=== PATIENT | male | born 1970 | race Caucasian/White ===

== ENCOUNTER 2022-12-08 10:30 | Outpatient (REF) | payer OTHER, SELFPAY ==
--- NOTE | ~2022-12-08 | XR_ITS ---
EXAMINATION: XR SACROILIAC JOINTS CLINICAL INFORMATION: Ankylosing spondylitis. COMPARISON: None TECHNIQUE: AP and bilateral Judet views of the sacroiliac joints FINDINGS: Bony alignment and mineralization are normal. The left sacroiliac joint is well-maintained an intact. There is possible ankylosis of the upper and lower aspects of the right sacroiliac joint, which are poorly defined. No fracture or dislocation is seen. The hip joints are well-maintained. There is a moderate colonic stool burden. XR/XR sacroiliac joint 1-2V IMPRESSION: The left acetabular joint is well-maintained, and the right sacroiliac joint shows questionable ankylosis superiorly and inferiorly, suboptimally visualized. Consider repeat oblique radiographs of the right sacroiliac joint or CT or MRI evaluation, if clinically indicated.
--- NOTE | ~2022-12-08 | XR_ITS ---
EXAMINATION: XR CHEST 2 VIEWS CLINICAL INFORMATION: Left uveitis; sarcoidosis. COMPARISON: None. TECHNIQUE: Frontal and lateral views of the chest were obtained. FINDINGS: The heart, great vessels, pulmonary vasculature and mediastinum are normal. The lungs show no focal infiltrate, effusion or pneumothorax. There are old, healed posterolateral left seventh and eighth rib fractures. There is no acute osseous abnormality. There is multi-level thoracic spondylosis. XR/XR chest 2V IMPRESSION: No active cardiopulmonary disease.
[2022-12-10 23:13] LABS: TS Negative Control Passed; TS Panel A 0; TS Panel B 0; TS Positive Control Passed; TSpotTB Negative (Negative)
== END 2022-12-08 10:31 | disposition home or self-care (01) ==
LOC: HO.XRAY 10:30
PROVIDERS: Visit Provider Optometrist
DX: Z11.1 Encounter for screening for respiratory tuberculosis (principal); H20.9 Unspecified iridocyclitis
CPT/HCPCS: 36415; 71046; 72200; 86481

== ENCOUNTER 2023-05-17 14:16 | Outpatient (AMB) | payer OTHER, SELFPAY ==
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
[2023-05-17 14:32] VITALS: BP 110/64; PULSE 77; RESP 17; TEMP 36.5; O2SAT 96; BMI 36.6
== END 2023-05-17 15:17 | disposition home or self-care (01) ==
PROVIDERS: PCP Registered Nurse; Visit Provider Student in an Organized Health Care Education/Training Program
DX: M45.0 Ankylosing spondylitis of multiple sites in spine (principal)
CPT/HCPCS: 99203

== ENCOUNTER → 2023-05-17 14:16 | Outpatient (BNVA) | payer OTHER, SELFPAY | PROVIDERS: PCP Registered Nurse; Visit Provider Student in an Organized Health Care Education/Training Program | DX: M45.0 Ankylosing spondylitis of multiple sites in spine (principal) | CPT/HCPCS: 99202 ==

== ENCOUNTER 2023-06-05 13:45 | Outpatient (REF) | payer OTHER, SELFPAY ==
--- NOTE | ~2023-06-05 | XR_ITS ---
EXAMINATION: 1. RADIOGRAPHS CERVICAL SPINE 2. RADIOGRAPHS THORACIC SPINE 3. RADIOGRAPHS LUMBAR SPINE CLINICAL INFORMATION: Ankylosing spondylitis COMPARISON: None TECHNIQUE: 4 views of the cervical spine and 3 views of the thoracic spine and 3 views of the lumbar spine were obtained. FINDINGS: Cervical spine: The cervical spine demonstrates normal alignment. Normal C1/2 articulation. Cervical vertebral body heights are maintained. There is mild narrowing of the C3/4 disc space height. Other disc space heights are well-maintained. There is no prevertebral soft tissue swelling. Thoracic spine: Normal alignment of the thoracic spine. Thoracic vertebral body heights are maintained. There is mild narrowing of diffuse disc spaces throughout the mid and lower thoracic spine. Small bridging osteophytes are present throughout the mid and lower thoracic spine. Visualized lung parenchyma is well aerated. Partially visualized hardware of the upper extremity. Lumbar spine: 5 nonrib-bearing lumbar vertebral bodies are visualized. There is mild levoscoliosis of the lumbar spine which is possibly positional. Lumbar vertebral body heights are maintained. Lumbar disc spaces are maintained. There are mild degenerative changes of the posterior elements of the lower lumbar spine. Suspected complete ankylosis of the right sacroiliac joint with partial ankylosis of the left sacroiliac joint. XR/XR lumbar spine 2-3V IMPRESSION: 1. Minimal degenerative changes of the cervical spine. 2. Mild diffuse degenerative changes of the thoracic spine without compression deformity. 3. Mild degenerative changes of the lower lumbar spine without compression deformity.
--- NOTE | ~2023-06-05 | XR_ITS ---
EXAMINATION: 1. RADIOGRAPHS CERVICAL SPINE 2. RADIOGRAPHS THORACIC SPINE 3. RADIOGRAPHS LUMBAR SPINE CLINICAL INFORMATION: Ankylosing spondylitis COMPARISON: None TECHNIQUE: 4 views of the cervical spine and 3 views of the thoracic spine and 3 views of the lumbar spine were obtained. FINDINGS: Cervical spine: The cervical spine demonstrates normal alignment. Normal C1/2 articulation. Cervical vertebral body heights are maintained. There is mild narrowing of the C3/4 disc space height. Other disc space heights are well-maintained. There is no prevertebral soft tissue swelling. Thoracic spine: Normal alignment of the thoracic spine. Thoracic vertebral body heights are maintained. There is mild narrowing of diffuse disc spaces throughout the mid and lower thoracic spine. Small bridging osteophytes are present throughout the mid and lower thoracic spine. Visualized lung parenchyma is well aerated. Partially visualized hardware of the upper extremity. Lumbar spine: 5 nonrib-bearing lumbar vertebral bodies are visualized. There is mild levoscoliosis of the lumbar spine which is possibly positional. Lumbar vertebral body heights are maintained. Lumbar disc spaces are maintained. There are mild degenerative changes of the posterior elements of the lower lumbar spine. Suspected complete ankylosis of the right sacroiliac joint with partial ankylosis of the left sacroiliac joint. XR/XR cervical spine 3V IMPRESSION: 1. Minimal degenerative changes of the cervical spine. 2. Mild diffuse degenerative changes of the thoracic spine without compression deformity. 3. Mild degenerative changes of the lower lumbar spine without compression deformity.
--- NOTE | ~2023-06-05 | XR_ITS ---
EXAMINATION: 1. RADIOGRAPHS CERVICAL SPINE 2. RADIOGRAPHS THORACIC SPINE 3. RADIOGRAPHS LUMBAR SPINE CLINICAL INFORMATION: Ankylosing spondylitis COMPARISON: None TECHNIQUE: 4 views of the cervical spine and 3 views of the thoracic spine and 3 views of the lumbar spine were obtained. FINDINGS: Cervical spine: The cervical spine demonstrates normal alignment. Normal C1/2 articulation. Cervical vertebral body heights are maintained. There is mild narrowing of the C3/4 disc space height. Other disc space heights are well-maintained. There is no prevertebral soft tissue swelling. Thoracic spine: Normal alignment of the thoracic spine. Thoracic vertebral body heights are maintained. There is mild narrowing of diffuse disc spaces throughout the mid and lower thoracic spine. Small bridging osteophytes are present throughout the mid and lower thoracic spine. Visualized lung parenchyma is well aerated. Partially visualized hardware of the upper extremity. Lumbar spine: 5 nonrib-bearing lumbar vertebral bodies are visualized. There is mild levoscoliosis of the lumbar spine which is possibly positional. Lumbar vertebral body heights are maintained. Lumbar disc spaces are maintained. There are mild degenerative changes of the posterior elements of the lower lumbar spine. Suspected complete ankylosis of the right sacroiliac joint with partial ankylosis of the left sacroiliac joint. XR/XR thoracic spine 3V IMPRESSION: 1. Minimal degenerative changes of the cervical spine. 2. Mild diffuse degenerative changes of the thoracic spine without compression deformity. 3. Mild degenerative changes of the lower lumbar spine without compression deformity.
[2023-06-05 15:40] LABS: Alanine Aminotransferase 15 U/L (0-40); Alkaline Phosphatase 96 U/L (39-117); Anion Gap 12 (12-20); Aspartate Amino Transferase 11 U/L (5-37); Bilirubin Total 0.4 mg/dL (0.0-1.0); Blood Urea Nitrogen 14 mg/dL (9-16); Calcium 9.6 mg/dL (8.4-10.2); Carbon Dioxide 26 mmol/L (22-29); Chloride 104 mmol/L (96-108); Estimated Glomerular Filt Rate > 60; Glucose Random 241 mg/dL (60-115); Potassium 3.9 mmol/L (3.3-5.1); Sodium 138 mmol/L (135-145); Total Protein 7.2 g/dL (6.5-8.0)
[2023-06-06 04:05] LABS: HBc Num1 0.16 S/CO (0.00-0.79); HBsAGNum1 0.45 S/CO (0.00-0.99); Hepatitis A Antibody IgM 0.22 Index (0-0.79); Hepatitis B Core Antibody Nonreactive (Nonreactive); Hepatitis B Surface Antigen Negative (Negative); ~HepC Num1 0.13 S/CO (0.00-0.79); ~Hepatitis A Antibody IgM Nonreactive (Nonreactive); ~Hepatitis B Surface Antibody NONREACTIVE (Nonreactive); ~Hepatitis C Antibody Nonreactive (Nonreactive)
[2023-06-06 13:34] LABS: Prot Elec - Albumin 4.2 g/dL (3.8-4.8); Prot Elec - Alpha1 0.3 g/dL (0.2-0.3); Prot Elec - Alpha2 0.7 g/dL (0.5-0.9); Prot Elec - Beta 1 0.5 g/dL (0.4-0.6); Prot Elec - Beta 2 0.4 g/dL (0.2-0.5); Prot Elec - Total Protein 6.9 g/dL (6.1-8.1)
[2023-06-07 21:13] LABS: TS Negative Control Passed; TS Panel A 0; TS Panel B 0; TS Positive Control Passed; TSpotTB Negative (Negative)
[2023-06-09 20:08] LABS: HLA B27 Positive (Negative)
[2023-06-12 10:47] LABS: IgA 198 mg/dL (47-310); IgG 1184 mg/dL (600-1640); IgM 99 mg/dL (50-300)
== END 2023-06-05 13:46 | disposition home or self-care (01) ==
LOC: HO.LAB 13:45
PROVIDERS: PCP Nurse Practitioner Primary Care; Visit Provider Student in an Organized Health Care Education/Training Program
DX: Z11.7 Encounter for testing for latent tuberculosis infection (principal); Z11.59 Encounter for screening for other viral diseases; M45.0 Ankylosing spondylitis of multiple sites in spine
CPT/HCPCS: 36415; 72040; 72072; 72100; 80053; 82784; 84165; 86334; 86481; 86704; 86706; 86709; 86803; 86812; 87340

== ENCOUNTER 2023-07-17 09:45 | Outpatient (AMB) | payer OTHER, SELFPAY ==
[2023-07-17 09:47] VITALS: BP 110/66; PULSE 72; TEMP 36.2; O2SAT 97; BMI 37.6
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
== END 2023-07-17 10:16 | disposition home or self-care (01) ==
PROVIDERS: PCP Nurse Practitioner Primary Care; Visit Provider Student in an Organized Health Care Education/Training Program
DX: M45.0 Ankylosing spondylitis of multiple sites in spine (principal)
CPT/HCPCS: 99213

== ENCOUNTER → 2023-07-17 09:45 | Outpatient (BNVA) | payer OTHER, SELFPAY | PROVIDERS: PCP Nurse Practitioner Primary Care; Visit Provider Student in an Organized Health Care Education/Training Program | DX: M45.0 Ankylosing spondylitis of multiple sites in spine (principal) | CPT/HCPCS: 99212 ==

== ENCOUNTER 2024-06-05 14:27 | Outpatient (REF) | payer OTHER, SELFPAY ==
[2024-06-05 16:12] LABS: Hematocrit 46.2 % (42.0-52.0)
[2024-06-05 16:27] LABS: Alanine Aminotransferase 13 U/L (0-40); Albumin Level 4.2 g/dL (3.5-5.0); Alkaline Phosphatase 65 U/L (39-117); Anion Gap 12 (12-20); Aspartate Amino Transferase 12 U/L (5-37); Bilirubin Total 0.4 mg/dL (0.0-1.0); Blood Urea Nitrogen 15 mg/dL (9-16); Calcium 9.2 mg/dL (8.4-10.2); Carbon Dioxide 24 mmol/L (22-29); Chloride 104 mmol/L (96-108); Cholesterol 189 mg/dL (<200); Estimated Glomerular Filt Rate > 60; Glucose Random 186 mg/dL (60-115); HDL Cholesterol 37 mg/dL (>40); LDL Cholesterol Calculated 125 mg/dL (<100); Sodium 136 mmol/L (135-145); Total Protein 7.2 g/dL (6.5-8.0); Triglycerides 138 mg/dL (<150)
[2024-06-05 16:44] LABS: Creatinine Urine 51.87 mg/dL; Microalbumin Urine < 5.0 mg/L
[2024-06-09 21:34] LABS: Testosterone, Free 223.1 pg/mL (35.0-155.0); Testosterone, Total 970 ng/dL (250-1100)
== END 2024-06-05 14:28 | disposition home or self-care (01) ==
LOC: HO.HHCL 14:27
PROVIDERS: Visit Provider Nurse Practitioner Primary Care
DX: E11.65 Type 2 diabetes mellitus with hyperglycemia (principal); R79.89 Other specified abnormal findings of blood chemistry
CPT/HCPCS: 36415; 80053; 80061; 82570; 84402; 84403; 85014; 85018

== ENCOUNTER 2024-11-13 08:36 | Outpatient (REF) | payer OTHER, SELFPAY ==
[2024-11-13 11:37] LABS: Hematocrit 50.4 % (42.0-52.0); Hemoglobin 16.5 g/dl (14.0-18.0)
[2024-11-13 11:41] LABS: Cholesterol 179 mg/dL (<200); HDL Cholesterol 33 mg/dL (>40); LDL Cholesterol Calculated 111 mg/dL (<100); Triglycerides 179 mg/dL (<150)
[2024-11-13 11:45] LABS: Estimated Average Glucose 163 mg/dL; Hemoglobin A1C 246.3694 umol/L; Hemoglobin A1c % 7.3 % (<6.0); Total Hemoglobin (HGBA1C) 4336.5505 umol/L
[2024-11-18 20:38] LABS: Testosterone, Free 318.9 pg/mL (35.0-155.0); Testosterone, Total 1127 ng/dL (250-1100)
== END 2024-11-13 08:37 | disposition home or self-care (01) ==
LOC: HO.HHCL 08:36
PROVIDERS: Visit Provider Nurse Practitioner Primary Care
DX: E11.65 Type 2 diabetes mellitus with hyperglycemia (principal); R79.89 Other specified abnormal findings of blood chemistry
CPT/HCPCS: 36415; 80061; 83036; 84402; 84403; 85014; 85018

== ENCOUNTER 2025-08-28 08:41 | Outpatient (REF) | payer OTHER, SELFPAY ==
--- OUTSIDE RECORDS SUMMARY | 2025-08-28 09:20 | XMS_ITS | Encounter Summary ---
Author Organization [email or web address] Address [address] [place] [address] Care Team Providers Care Supervisor Rubber Covering Name Role Phone Anayeli Naranjo Primary Care Provider [phone] Encounter Details Date Type Department Care Team (Late st Contact Info) Description 01/03/2024 Telephone [facility] [address] [place], [place] [phone] Anayeli Naranjo ANP [address] [place] [address] Social History Tobacco Use Types Packs/Day Years Used Date Smoking Tobacco: Never Smokeless Tobacco: Never Alcohol Use Standard Drinks/Week Comments Never 0 (1 standard drink = 0.6 oz pur e alcohol) Depression Answer Date Recorded Patient Health Questionnaire-9 Score 0 05/15/2023 Housing Stability Answer Date Recorded What is your housing situation today? I have jose luis nelson 08/16/[address] you li ve. Do you have problems with any of the following? None of the above 08/16/2023 Food Insecurity Answer Date Recorded Within the past 12 months, y ou worried that your food would run out before you got money to buy more: Never True 08/16/2023 Within the past 12 months,th e food you bought just didn't last and you didn't have enough money to get more: Never True Transportation Answer Date Recorded In the past 12 months, has l ack of transportation kept you from medical appts, meetings, work or from getting things needed for daily living? No 08/16/2023 Utilities Answer Date Recorded In the past 12 months, has t he electric, gas, oil or water [employer] threatened to shut off services in your home? No 08/16/2023 Depression Answer Date Recorded Patient Health Questionnaire-2 Score 0 05/15/2023 Sex and Gender Information Value Date Recorded Sex Assigned at Male 08/21/2022 10:36 AM EDT Legal Sex Male 10:36 AM EDT Gender Identity Male 08/21/2022 10:36 AM EDT Sexual Orientation Choose not to disclose 2021 10:36 AM EDT documented as of this encounter Plan of Treatment Upcoming Encounters Date Type Department Care Team (Late st Contact Info) Description 11/20/2025 9:30 AM EST Office Visit [facility] [address] [place] [id number] Anayeli Naranjo ANP [address] [place] [address] documented as of this encounter Visit Diagnoses Not on filedocumented in this encounter Additional Health Concerns Assessment Noted Time PHQ-9 Depression Total Score: 0 05/15/20 23 10:47 AM EDT documented as of this encounter Care Teams Supervisor Rubber Covering Relationship Specialty Start Date End Date Anayeli Naranjo ANP [address] [place] [address] PCP - General Family Medicine 06/09/21 documented as of this encounter
--- OUTSIDE RECORDS SUMMARY | 2025-08-28 09:20 | XMS_ITS | Encounter Summary ---
Author Organization [employer] Address [address] [address] Care Team Providers Care [employer] Salesperson Name Role Phone Anayeli Naranjo Primary Care Provider [phone] Reason for Visit * Reason Onset Date Comments October recall 08/24/2025 Encounter Details Date Type Department Care Team ([facility] st Contact Info) Description 08/24/2025 Telephone [facility] [address] [place], [place] [phone] Anayeli Naranjo ANP [address] [place] [address] October recall Social History Tobacco Use Types Packs/Day Years Used Date Smoking Tobacco: Never Smokeless Tobacco: Never Alcohol Use Standard Drinks/Week Comments Never 0 (1 standard drink = 0.6 oz pur e alcohol) Depression Answer Date Recorded Patient Health Questionnaire-9 Score 0 08/20/2025 Patient Health Questionnaire-9 Score 0 08/20/2025 Last PHQ-9: Questionnaire Data Not on file 1 Housing Stability Answer Date Recorded What is your housing situation today? I have jose luis nelson 08/20/[address] you li ve. Do you have problems with any of the following? None of the above 08/20/2025 Food Insecurity Answer Date Recorded Within the past 12 months, y ou worried that your food would run out before you got money to buy more: Never True 08/20/2025 Within the past 12 months,th e food you bought just didn't last and you didn't have enough money to get more: Never True Transportation Answer Date Recorded In the past 12 months, has l ack of transportation kept you from medical appts, meetings, work or from getting things needed for daily living? No 08/20/2025 Utilities Answer Date Recorded In the past 12 months, has t he electric, gas, oil or water company threatened to shut off services in your home? No 08/20/2025 Depression Answer Date Recorded Patient Health Questionnaire-2 Score 0 08/20/2025 Internet Access Answer Date Recorded Internet Access Q1 Yes 08/20/2025 Internet Access Q2 Not on file 08/20/2025 Sex and Gender Information Value Date Recorded Sex Assigned at Male 08/21/2022 10:36 AM EDT Legal Sex Male 10:36 AM EDT Gender Identity Male 08/21/2022 10:36 AM EDT Sexual Orientation Choose not to disclose 2021 10:36 AM EDT documented as of this encounter Miscellaneous Notes * Telephone Encounter - Eddie Coleman [place] - 08/24/2025 9:57 AM EST Telephone call to patient to schedule the following recall: Visit type: Follow up Appointment notes: DM and low testosterone Patient agree to appointment on 11/20/2025 at 9:30 AM with Jose A. documented in this encounter Plan of Treatment Upcoming Encounters Date Type Department Care Team (Late st Contact Info) Description 11/20/2025 9:30 AM EST Office Visit [facility] [address] [place] [address] Anayeli Naranjo ANP [address] [place] [address] documented as of this encounter Visit Diagnoses Not on filedocumented in this encounter Additional Health Concerns Assessment Noted Time PHQ-9 Depression Total Score: 0 08/20/20 25 12:01 PM EDT documented as of this encounter Care Teams Electric [employer] Salesperson Relationship Specialty Start Date End Date Anayeli Naranjo ANP [address] [place] [id number] PCP - General Family Medicine 06/09/21 documented as of this encounter
--- OUTSIDE RECORDS SUMMARY | 2025-08-28 09:20 | XMS_ITS | Encounter Summary ---
Author Organization [employer] Address [address] [address] Care Team Providers Care Recreation Facility Manager Name Role Phone Anayeli Naranjo Primary Care Provider [phone] Reason for Visit * Reason Comments Med Refill Encounter Details Date Type Department Care Team ([facility] st Contact Info) Description 12/06/2023 Refill [facility] [address] [place], [place] [phone] Anayeli Naranjo ANP [address] [place] [address] Low testosterone Social History Tobacco Use Types Packs/Day Years [...] Description 11/20/2025 9:30 AM EST Office Visit [facility] [address] [place] [phone] Anayeli Naranjo ANP [address] [place] [phone] documented as of this encounter Visit Diagnoses Diagnosis Low testosterone documented in this encounter Additional Health Concerns Assessment Noted Time PHQ-9 Depression Total Score: 0 05/15/20 23 10:47 AM EDT documented as of this encounter Care Teams Recreation Facility Manager Relationship Specialty Start Date End Date Anayeli Naranjo ANP [address] [place] [phone] PCP - General Family Medicine 06/09/21 documented as of this encounter
--- OUTSIDE RECORDS SUMMARY | 2025-08-28 09:20 | XMS_ITS | Encounter Summary ---
Author Organization [employer] Address [address] [address] Care Team Providers Care Supervisor [employer] Name Role Phone Anayeli Naranjo Primary Care Provider [phone] Reason for Visit * Reason Comments Med Refill Encounter Details Date Type Department Care Team ([facility] st Contact Info) Description 03/18/2024 Refill [facility] [address] [place], [place] [phone] Anayeli Naranjo ANP [address] [place] [address] Low testosterone Social History Tobacco Use Types [...] Description 11/20/2025 9:30 AM EST Office Visit [facility] [address] [place] [phone] Anayeli Naranjo ANP [address] [place] [phone] documented as of this encounter Visit Diagnoses Diagnosis Low testosterone documented in this encounter Additional Health Concerns Assessment Noted Time PHQ-9 Depression Total Score: 0 05/15/20 23 10:47 AM EDT documented as of this encounter Care Teams Supervisor [employer] Relationship Specialty Start Date End Date Anayeli Naranjo ANP [address] [place] [phone] PCP - General Family Medicine 06/09/21 documented as of this encounter
--- OUTSIDE RECORDS SUMMARY | 2025-08-28 09:20 | XMS_ITS | Clinical Summary ---
Author Organization [facility] Address [address] [place] [address] Care Team Providers Care Child Care Supervisor Name Role Phone Unavailable Primary Care Provider Unavailabl e Source Comments PLEASE NOTE, if this patient is a minor, it may be UNLAWFUL to discuss sensitive information that is contained in these records (such as FAMILY PLANNING, MENTAL HEALTH or SUBSTANCE ABUSE) with the minor patient's parent or other person without the patient's specific authorization.[facility] Allergies Active Allergy Reactions Criticality Noted Date Comments Penicillins 07/17/2022 Medications metFORMIN (GLUCOPHAGE) 1,000 mg tablet Take 1,000 mg by mouth 2 (two) times daily with a meal Active Active Problems No known active problems Social History Tobacco Use Types Packs/Day Years Used Date Smoking Tobacco: Never Smokeless Tobacco: Never Tobacco Cessation:Counseling Given: Not Answered Social Connections Answer Date Recorded Connectedness 0 07/03/2024 Financial Resource Strain Answer Date R ecorded Financial Resource Strain 0 2021 Stress Answer Date Recorded Stress 0 07/17/2022 Physical Activity Answer Date Recorded Physical Activity 0 07/17/2022 Food Insecurity Answer Date Recorded Food 0 07/17/2024 Transportation Needs Answer Date Record ed Transportation 0 07/17/2022 Housing Stability Answer Date Recorded Housing 0 07/17/2022 Safety and Environment Answer Date Vasquez rded Safety 0 07/17/2022 Utilities Answer Date Recorded Utilities 0 07/17/2022 Employment Answer Date Recorded Stress 0 07/03/2024 Sex and Gender Information Value Date Recorded Sex Assigned at Male 07/17/2022 10:39 AM PDT Legal Sex Male 11:30 AM PDT Gender Identity Male 07/17/2022 10:39 AM PDT Sexual Orientation Straight 07/17/2022 10 :39 AM PDT Last Filed Vital Signs Vital Sign Reading Time Taken Comments Blood Pressure 123/78 03/25/2025 9:10 AM EDT Pulse 64 03/25/2025 9:10 AM EDT Temperature - - Respiratory Rate - - Oxygen Saturation - - Inhaled Oxygen Concentration - - Weight - - Height - - Body Mass Index - - Plan of Treatment Upcoming Encounters Date Type Department Care Team (Late st Contact Info) Description 09/04/2025 9:00 AM EST Office Visit [facility] [address] [place] [phone] Swathi Roman [address] [place] [address] Health Maintenance Due Date Last Done Comments Anxiety Screening 1968 Hepatitis B Screening 1968 Hepatitis C Screening 1968 HIV Screening 1968 Syphilis Screening 09/28/1982 Imm-Hepatitis A (1 of 2 - Ri sk 2-dose series) 1987 Imm-Hepatitis B (1 of 3 - 19 + 3-dose series) 1987 CT Colonography 2013 Colonoscopy 2013 Colorectal Cancer Screening 2013 FIT/gFOBT 2013 Fecal DNA 2013 Flexible Sigmoidoscopy 2013 Imm-Zoster, Recombinant (1 of 2) 2018 Alcohol and Drug Screen 10/22/2024 Depression Annual Screen 10/22/2024 [id number] ( season) 2025 022, 01/10/2022 Imm-Influenza (#1) 2025 11/06/2024, 07/18/2021 Dental BW 03/08/2026 03/06/2025, 09/22, 10/17/2023, Additional history exists Dental Examination 03/08/2026 03/06/2025, 1 12/18/2022, 04/16/2023, Additional history exists Dental Perio Charting 03/08/2026 03/06/2025 , 10/17/2023, 04/16/2023 Dental Prophy 03/08/2026 03/06/2025, 09/22, 04/16/2023, Additional history exists Hypertension Screening (#1) 03/25/2026 Tobacco Screening 03/25/2026 03/25/2025 Diabetes Screening 11/13/2027 11/13/2024, 0 11/13/2024, 11/06/2024, Additional history exists Dental FMX/Pano 10/19/2028 10/17/2023 Lipid Screening 11/13/2029 11/13/2024, 02/13/2023 Imm-DTaP/Tdap/Td (2 - Td or Tdap) 07/18/2031 021 Imm-Pneumococcal 50+ Completed 03/04/2024 Procedures Procedure Name Priority Date/Time Associated Diagnosis Comments COMP PERIODONTAL EVALUATION - NEW/EST PATIENT Routine 03/06/2025 9:00 AM EDT Encounter for dental examination and cleaning with abnormal findings Stage 4 grade B localized periodontitis per AAP/EFP 2017 classification BITEWINGS - FOUR RADIOGRAPHIC IMAGES Routine 03/06/2025 9:00 AM EDT Encounter for dental examination and cleaning with abnormal findings Stage 4 grade B localized periodontitis per AAP/EFP 2017 classification PROPHYLAXIS - ADULT Routine 03/06/2025 9 :00 AM EDT Encounter for dental examination and cleaning with abnormal findings Stage 4 grade B localized periodontitis per AAP/EFP 2017 classification PERIODIC ORAL EVALUATION ESTABLISHED PATIENT Routine 03/06/2025 9:00 AM EDT Encounter for dental examination and cleaning with abnormal findings Stage 4 grade B localized periodontitis per AAP/EFP 2017 classification INTRAORAL - COMP SERIES OF RADIOGRAPHIC IMAGES Routine 10/17/2023 9:40 AM EST [facility] Encounter for dental examination and cleaning with abnormal findings Chronic periodontitis, generalized, severe from Last 3 Months or Most Recently Relevant to Health Maintenance Insurance [place] [facility]
--- OUTSIDE RECORDS SUMMARY | 2025-08-28 09:20 | XMS_ITS | Clinical Summary ---
Author Organization [employer] Address [address] [place] [address] Care Team Providers Care Door Tender Name Role Phone Anayeli Naranjo ARGENIS Primary Care Provider [phone] Allergies Active Allergy Reactions Criticality Noted Date Comments Penicillins 07/17/2022 Medications Blood Glucose Monitoring Suppl (FreeStyle [place] Lite) w/Device kit TEST BLOOD SUGAR ONE OR TWO TIMES DAILY 022 Active omeprazole (PriLOSEC) [address] capsule TAKE 1 CAPSULE BY MOUTH EVERY DAY BEFORE A MEAL 022 Active cyclopentolate (Cyclogyl) 1 % ophthalmic solutionIndicatio ns:Uveitis of left eye Administer 1 drop into the left eye 2 times daily. 5 mL 023 Active Additional Information Patient not taking.Reported on 02/22/2024 sildenafil (Viagra) 50 MG tablet Take 1 tablet (50 mg) by mouth if needed each day for erectile dysfunction. 20 tablet 1 023 Active senna-docusate sodium (Senokot-S) 8.6-50 MG tabletIndications :Constipation, unspecified constipation type 1-2 tablets once daily as needed for constipation 60 tablet 023 Active Alcohol Swabs padsIndications:L ow testosterone 1 each if needed (to clean skin). 100 each 023 Active glucose blood (FREESTYLE LITE) test strip TEST BLOOD SUGAR ONE OR TWO TIMES DAILY 100 each 023 Active Jardiance 25 MGIndications:Typ e 2 diabetes mellitus with hyperglycemia, without long-term current use of insulin (HCC) TAKE 1 TABLET BY MOUTH EVERY DAY IN THE MORNING 90 tablet 1 025 Active Ozempic, 1 MG/DOSE, 4 MG/3ML solution pen-injectorIndic ations:Type 2 diabetes mellitus with hyperglycemia, without long-term current use of insulin (HCC) INJECT 1 MG UNDER THE SKIN 1 (ONE) TIME PER WEEK. 3 mL 12 025 Active Syringe 18G X 1-1/2 3 ML miscIndications:L ow testosterone Use to draw up testosterone, 0.5mL every 7 days, switch to 25G needle for injection 12 each 3 025 Active Needle, Disp, (BD Eclipse Needle) 25G X 5/8 miscIndications:L ow testosterone 1 each 1 (one) time per week. 12 each 3 025 Active testosterone cypionate (Depo-Testosteron e) 200 MG/ML injectionIndicati ons:Low testosterone INJECT 1mL every other week INTO THIGH OR BUTTOCK 4 mL 025 Active atorvastatin (Lipitor) 10 MG tabletIndications :Type 2 diabetes mellitus with hyperlipidemia (HCC) Take 1 tablet (10 mg) by mouth Once per day. 90 tablet 3 025 2025 Active atorvastatin (Lipitor) 10 MG tabletIndications :Type 2 diabetes mellitus with hyperlipidemia (HCC) Take 1 tablet (10 mg) by mouth in the morning. 30 tablet 11 023 2024 Discontinued(R eorder (will not trigger notification to Pharmacy)) Needle, Disp, (B-D BLUNT FILL NEEDLE) 18G X 1-1/2 miscIndications:L ow testosterone 1 each every 7 (seven) days. To draw up testosterone, not for injection 24 each 3 023 2024 Discontinued(R eorder (will not trigger notification to Pharmacy)) Syringe 18G X 1-1/2 3 ML miscIndications:L ow testosterone Use to draw up testosterone, 0.5mL every 7 days, switch to 25G needle for injection 12 each 3 024 2024 Discontinued(R eorder (will not trigger notification to Pharmacy)) Needle, Disp, (BD Eclipse Needle) 25G X 5/8 miscIndications:L ow testosterone 1 each 1 (one) time per week. 12 each 3 024 2024 Discontinued(R eorder (will not trigger notification to Pharmacy)) testosterone cypionate (Depo-Testosteron e) 200 MG/ML injectionIndicati ons:Low testosterone INJECT 0.5 ML (50MG) ONCE WEEKLY INTO THIGH OR BUTTOCK 4 mL 025 2024 Discontinued(R eorder (will not trigger notification to Pharmacy)) Needle, Disp, (B-D BLUNT FILL NEEDLE) 18G X 1-10/23 miscIndications:L ow testosterone 1 each every 7 (seven) days. To draw up testosterone, not for injection 24 each 3 025 2024 Discontinued(A lternate therapy) zoster vaccine-recombina nt adjuvanted (Shingrix) 50 MCG/0.5ML vaccine Inject 0.5 mL (50 mcg) into the muscle 1 (one) time for 1 dose. Repeat as directed 1 each 1 025 2024 Active Problems Problem Noted Date Diagnosed Date Screening for colon cancer 03/04/2024 Overview (03/04/2024): Cologuard negative 02/2023 Ankylosing spondylitis of multiple sites in spin e ([facility]) 06/11/2023 Overview (06/11/2023): Pos HLA B27 Ag on 06/09/27 Sees [facility] Low testosterone 05/15/2023 Overview (06/10/2024): H/H and LFTs wnl 05/2024 Dose 0.50mL (100mg, 200mg/mL) once weekly IM Declined injection teaching Switched from topical d/t ineffective per pt though was very brief trial (2 weeks) History of uveitis 02/13/2023 Type 2 diabetes mellitus wit h hyperglycemia, without long-term current use of insulin 12/07/2022 Overview (11/06/2024): Jardiance 25mg Ozempic 1mg weekly (switched from Trulicity d/t A1c not at goal, need for higher dosing, increased ozempic 06/10/24 for A1c above goal) Atorvastatin 10mg (recommend increase to 20mg at f/u) Eye exam 01/2024 no diabetic retinopathy or macular edema Foot exam 10/2024 normal PCV20 UTD Could not tolerate metformin d/t GI effects Resolved Problems Problem Noted Date Diagnosed Date Resolved Date Type 2 diabetes mellitus without complication 12/07/19 23 12/07/2022 Encounters Date Type Department Care Team Description 08/24/2025 Telephone [facility] [address] [place] [address] Anayeli Naranjo ANP October08/21/2025 10:00 AM EDT Office Visit [facility] [address] [place] [address] Elizabeth Navas, OD Diabetes type 2, no ocular involvement (HCC) (Primary Dx); 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; Dry eyes; Nuclear sclerotic cataract of both eyes; History of uveitis; Presbyopia 08/21/2025 Travel 08/20/2025 11:30 AM EDT Office Visit [facility] [address] [place] [address] Anayeli Naranjo ANP Type 2 diabetes mellitus with hyperglycemia, without long-term current use of insulin (HCC) (Primary Dx); Ankylosing spondylitis of multiple sites in spine ([facility]/HCC) (HCC); Low testosterone; History of uveitis; Type 2 diabetes mellitus with hyperlipidemia (HCC) 08/20/2025 Travel 08/18/[address] [address] Anayeli Naranjo ANP chart prep 08/12/2025 Patient Outreach [address] [address] Anayeli Naranjo ANP Pre-visit Planning (Pre-visit planning - LVM ) 07/22/[address] [address] Joselyn Villagomez, steno typist Orders; Appointment Request 07/21/2025 Orders Only [address] [address] Anayeli Naranjo ANP Low testosterone (Primary Dx); Type 2 diabetes mellitus with hyperlipidemia ([facility]) ([facility]) 07/20/2025 Refill [facility] [address] [place] [address] Anayeli Naranjo ANP Low testosterone 07/17/2025 Refill [facility] [address] [place] [address] Anayeli Naranjo ANP Type 2 diabetes mellitus with hyperglycemia, without long-term current use of insulin ([facility]) from Last 3 Months Immunizations Immunization Administration Dates Next Due Influenza injectable quadrivalent preservative f ree 07/18/2021 Influenza, seasonal, injectable, preservative fr ee 11/06/2024 Pfizer Covid-19 Vaccine 12+ 01/31/2022, Pfizer Covid-19 Vaccine 12+ lindsay-sucrose (Travon Infante ap) 01/31/2022,01/10/2022 Pneumococcal Conjugate PCV 20 03/04/2024 Tdap 07/18/2021 Social History Tobacco Use Types Packs/Day Years Used Date Smoking Tobacco: Never Smokeless Tobacco: Never Tobacco Cessation:Counseling Given: Not Answered Alcohol Use Standard Drinks/Week Comments Never 0 [...] the past 12 months, has t he [employer], gas, oil or water company threatened to [...] not to disclose 2021 10:36 AM EDT Last Filed Vital Signs Vital Sign Reading Time Taken Comments Blood Pressure 100/80 08/20/2025 11:54 AM EDT Pulse 74 08/20/2025 11:54 AM EDT Temperature 36.1 C (97 F) 08/20/2025 11:54 AM EDT Respiratory Rate 12 08/20/2025 11:54 AM EDT Oxygen Saturation 95% 08/20/2025 11:54 AM EDT Inhaled Oxygen Concentration - - Weight 100 kg (221 lb) 08/20/2025 11:54 AM EDT Height 172.7 cm (5' 8 ) 08/20/2025 11:54 AM EDT Body Mass Index 33.6 08/20/2025 11:54 AM EDT Plan of Treatment Upcoming Encounters Date Type Department Care Team (Late st Contact Info) Description 11/20/2025 9:30 AM EST Office Visit [facility] [address] [place] [phone] Anayeli Naranjo, ANP [address] [place] [address] Health Maintenance Due Date Last Done Comments CT Colonography 1968 Colonoscopy 1968 FIT 1968 FOBT 1968 Sigmoidoscopy 1968 Hepatitis B Vaccines (1 of 3 - 19+ 3-dose series) 1987 Zoster Vaccines (1 of 2) 2018 Diabetes: Urine Protein Screening 06/05/2025 06/05/2024, 02/13/2023 COVID-19 Vaccine ( season) 2025 01/31/2022, 01/31/2022, 01/10/2022, Additional history exists Influenza Vaccine (#1) 2025 11/06/2024, 2020 Alcohol/Substance Use Screening 11/06/2025 11/06/2024 Diabetes: Foot Exam 11/06/2025 11/06/2024, Lipid Panel 11/13/2025 11/13/2024, 05/22, 02/13/2023 Diabetes: Hemoglobin A1C 02/18/2026 025, 11/13/2024, 11/06/2024, Additional history exists Colorectal Cancer Screening 03/06/2026 FIT DNA/Cologuard 03/06/2026 Depression Screening 08/20/2026 08/20/2025, 08/20/20 25 Disability Screening 08/20/2026 08/20/2025 SDOH Screening 08/20/2026 08/20/2025 Tobacco Screening 08/21/2026 08/21/2025 Eye Exam 08/21/2027 08/21/2025, 07/24, 08/21/2025, Additional history exists DTaP/Tdap/Td Vaccines (2 - Td or Tdap) 07/18/2031 07/18/2021 RSV Patients and Patients Aged 60 years or older (1 - 1-dose 75+ series) 2043 HIV Screening Completed 10/31/2019 Hepatitis C Screening Completed 06/05/2023, 020 Pneumococcal Vaccine: 50+ Years Completed 03/04/2024 HIB Vaccines Aged Out No longer eligi ble based on patient's age to complete this topic HPV Vaccines Aged Out No longer eligi ble based on patient's age to complete this topic Hepatitis A Vaccines Aged Out No long er eligible based on patient's age to complete this topic IPV Vaccines Aged Out No longer eligi ble based on patient's age to complete this topic Meningococcal B Vaccine Aged Out No l onger eligible based on patient's age to complete this topic Meningococcal Vaccine Aged Out No clarence neymar eligible based on patient's age to complete this topic RSV under 20 months Aged Out No longe r eligible based on patient's age to complete this topic Rotavirus Vaccines Aged Out No longer eligible based on patient's age to complete this topic Procedures Procedure Name Priority Date/Time Associated Diagnosis Comments POCT GLYCATED HEMOGLOBIN, TOTAL Routine 08/20/2025 12:03 PM EDT Type 2 diabetes mellitus with hyperglycemia, without long-term current use of insulin (HCC) POCT GLUCOSE Routine 08/20/2025 12:00 PM EDT Type 2 diabetes mellitus with hyperglycemia, without long-term current use of insulin (HCC) LIPID PANEL, STANDARD Routine 11/13/2024 8:40 AM EST Type 2 diabetes mellitus with hyperglycemia, without long-term current use of insulin (CMS/HCC) ALBUMIN, RANDOM URINE W/CREATININE Routine 06/05/2024 2:30 PM EDT Type 2 diabetes mellitus with hyperglycemia, without long-term current use of insulin (CMS/HCC) HEPATITIS PANEL, GENERAL Routine 06/05/2023 2:14 PM EDT [facility] HISTORICAL HIV AB/AG Routine 10/31/2019 3:33 PM EST from Last 3 Months or Most Recently Relevant to Health Maintenance Results * (ABNORMAL) POCT Hgb A1c (08/20/2025 12:03 PM EDT) Hemoglobin A1C 6.5(A) 4.0 - 5.7 % QC Media Lot # [id number] Lot# Expiration Date [id number] Blood 08/20/2025 12:0 3 PM EDT us Anayeli [facility] POINT OF CARE TEST ENTER/EDIT OR DERABLES Final Result * POCT Glucose (08/20/2025 12:00 PM EDT) Glucose Blood, POC 125 60 - 200 mg/dL QC Media Lot # [id number] Lot# Expiration Date [id number] Blood Capillary blood specimen / Unknown 08/20/2025 12:00 PM EDT Anayeli Naranjo ANP POINT OF CARE TEST ENTER/EDIT OR DERABLES Final Result * (ABNORMAL) Lipid Panel, Standard (11/13/2024 8:40 AM EST) Triglycerides 179(H) <150 mg/dL [facility] Comment:Desirable Triglyceri de: less than 150 mg/dLBorderline High Triglyceride 150-199 mg/dLHigh Triglyceride: 200-499 mg/dLVery High Triglyceride: greater than or equal to 5OO mg/dL Cholesterol 179 <200 mg/dL [facility] Comment:Desirable Cholestero l: less than 200 mg/dLBorderline High Cholesterol: 200-239 mg/dLHigh Cholesterol: greater than 239 mg/dL LDL Cholesterol Calculated 111(H) <100 mg/dL [facility] Comment:Desirable LDL: less than 100 mg/dLNear Optimal/Above Optimal LDL: 110- 129 mg/dLBorderline High LDL: 130-159 mg/dLHigh LDL: 160-189 mg/dLVery High LDL: greater than or equal to 190 mg/dL HDL Cholesterol 33(L) >40 mg/dL [facility] Comment:Desirable HDL: great er than 40 mg/dL Note: This HDL assay may give artificially low results in patients with liver disease. Blood Venous blood specimen / Unknown 11/13/2024 8:40 AM EST 11/13/2024 11:20 AM EST Anayeli Naranjo ANP LAB BLOOD ORDERABLES Final Resul t [facility] [address] [place] [phone] * Albumin, Random Urine W/Creatinine (06/05/2024 2:30 PM EDT) Creatinine, Urine 51.87 mg/dL [facility] Microalbumin Urine <5.0 mg/L [facility] Microalbum Creatinine Ratio Ur TNP <30 ug/mg cr [facility] Comment:Unable to calculate albumin/creatinine ratio due to lowmicroalbumin or creatinine result. Urine (Urine, Random) 06/05/2024 2:30 PM EDT 06/05/2024 4:00 PM EDT [facility] LAB URINE ORDERABLES Final Resul t Performing Organization Address [facility] de Phone Number [facility] [address] [place] [phone] * Hepatitis Panel, General (06/05/2023 2:14 PM EDT) Hepatitis A IgM Nonreactive Nonreactive [facility] Comment:IgM antibodies to MENA V not detected; does not exclude earlyacute or recovered HAV infection. ~Hepatitis B Surface Antibody NONREACTIVE Nonreactive [facility] Comment:Nonreactive: < 8.00 mIU/mL Hepatitis B Core Antibody Nonreactive Nonreactive [facility] Hepatitis C Antibody Nonreactive Nonreactive [facility] Comment:Antibodies to HCV no t detected; does not exclude early acuteHCV infection. Hepatitis B Surface Ag Negative Negative [facility] 06/05/2023 2:14 PM EDT 06/05/2023 2:14 PM EDT [facility] External Provider LAB BLO OD ORDERABLES Final Result Performing Organization Address [facility] de Phone Number [facility] [address] [place] [phone] * HIV AB/AG (10/31/2019 3:33 PM EST) HIV AG/AB NONREACTIVE [facility] Comment: HIV-1 p24 Ag and/or HIV-1/HIV-2 Ab not detected. A test result that is nonreactive does not exclude the possibility of exposure to or infection with HIV-1 and/or HIV-2. Nonreactive results in this assay for individuals with prior exposure to HIV-1 and/or HIV-2 may be due to antigen and antibody levels that are below the limit of detection of this assay. The [facility] Patient Care Director HIV Ag/Ab Combo assay result and supplemental assay results should be interpreted in conjunction with the patient's clinical presentation, history and other laboratory results. If the results are inconsistent with clinical evidence, additional testing is suggested to confirm the result. 10/31/2019 3:33 PM EST us Historical Provider MD HISTORICAL/NON ORDERABLE LABS Final Result [place] [id number] from Last 3 Months or Most Recently Relevant to Health Maintenance Insurance [employer] Care Teams Door Tender Relationship Specialty Start Date End Date Anayeli Naranjo ANP [address] [place] [phone] PCP - General Family Medicine 06/09/21
--- OUTSIDE RECORDS SUMMARY | 2025-08-28 09:20 | XMS_ITS | Encounter Summary ---
Author Organization [employer] Address [address] [address] Care Team Providers Care Sales Service Assistant Name Role Phone Anayeli Naranjo Primary Care Provider [phone] Reason for Visit * Reason Comments Med Refill Encounter Details Date Type Department Care Team ([facility] st Contact Info) Description 02/20/2024 Refill [facility] MED[facility]INE [address] [place], [place] [phone] Anayeli Naranjo ANP [address] [place] [address] Social History Tobacco Use Types Packs/Day Years [...] Description 11/20/2025 9:30 AM EST Office Visit [facility] MED[facility] [address] [place] [phone] Anayeli Naranjo ANP [address] [place] [phone] documented as of this encounter Visit Diagnoses Not on filedocumented in this encounter Additional Health Concerns Assessment Noted Time PHQ-9 Depression Total Score: 0 05/15/20 23 10:47 AM EDT documented as of this encounter Care Teams Sales Service Assistant Relationship Specialty Start Date End Date Anayeli Naranjo ANP [address] [place] [phone] PCP - General Family Medicine 06/09/21 documented as of this encounter
[2025-08-28 11:40] LABS: Hemoglobin 17.9 g/dl (14.0-18.0)
[2025-08-28 12:03] LABS: Hematocrit 55.7 % (42.0-52.0)
[2025-08-28 12:22] LABS: Alanine Aminotransferase 20 U/L (0-40); Albumin Level 4.7 g/dL (3.5-5.0); Alkaline Phosphatase 71 U/L (39-117); Anion Gap 11 (12-20); Aspartate Amino Transferase 24 U/L (5-37); Blood Urea Nitrogen 11 mg/dL (9-16); Calcium 9.4 mg/dL (8.4-10.2); Carbon Dioxide 28 mmol/L (22-29); Chloride 103 mmol/L (96-108); Cholesterol 207 mg/dL (<200); Estimated Glomerular Filt Rate > 60; HDL Cholesterol 43 mg/dL (>40); Potassium 4.6 mmol/L (3.3-5.1); Sodium 137 mmol/L (135-145); Total Protein 7.6 g/dL (6.5-8.0); Triglycerides 120 mg/dL (<150)
[2025-08-28 12:24] LABS: Microalbum/Creatinine Ratio Ur 7.4 ug/mg cr (<30)
[2025-09-03 22:53] LABS: Testosterone, Free 187.4 pg/mL (35.0-155.0)
== END 2025-08-28 08:42 | disposition home or self-care (01) ==
LOC: HO.HHCL 08:41
PROVIDERS: PCP Nurse Practitioner Primary Care; Visit Provider Nurse Practitioner Primary Care
DX: E11.69 Type 2 diabetes mellitus with other specified complication (principal); E78.5 Hyperlipidemia, unspecified; R79.89 Other specified abnormal findings of blood chemistry
CPT/HCPCS: 36415; 80053; 80061; 82043; 82570; 83036; 84402; 84403; 85014; 85018

== ENCOUNTER 2025-10-08 08:44 | Outpatient (REF) | payer OTHER, SELFPAY ==
--- OUTSIDE RECORDS SUMMARY | 2025-10-08 09:17 | XMS_ITS | Encounter Summary ---
Author Organization [employer] Address 75 [facility] [address] [place] [address] Care Team Providers Care Youth Nutritional Monitor Name Role Phone Anayeli Naranjo Primary Care Provider [phone] Encounter Details Date Type Department Care Team (Late st Contact Info) Description 01/03/2024 Telephone [facility] MEDICINE [address] [place], [place] [phone] Anayeli Naranjo ANP 230 [place] [address] Social History Tobacco Use Types Packs/Day Years [...] t he electric, gas, oil or water [employer] threatened to shut off services in your [...] 11/20/2025 9:30 AM EST Office Visit [facility] MED[facility]INE [address] [place] [phone] Anayeli Naranjo ANP 230 [place] [address] documented as of this encounter Visit Diagnoses Not on filedocumented in this encounter Additional Health Concerns Assessment Noted Time PHQ-9 Depression Total Score: 0 05/15/20 23 10:47 AM EDT documented as of this encounter Care Teams Youth Nutritional Monitor Relationship Specialty Start Date End Date Anayeli Naranjo ANP [address] [place] [address] PCP - General Family Medicine 06/09/21 documented as of this encounter
--- OUTSIDE RECORDS SUMMARY | 2025-10-08 09:17 | XMS_ITS | Encounter Summary ---
Author Organization [employer] Address [address] [address] Care Team Providers Care Brand Leader Name Role Phone Anayeli Naranjo Primary Care Provider [phone] Reason for Visit * Reason Comments Med Refill Encounter Details Date Type Department Care Team ([facility] st Contact Info) Description 03/18/[address] [facility] MEDICINE 230 [place], [place] [phone] Anayeli Naranjo ANP 230 [place] [address] Low testosterone Social History Tobacco Use Types [...] 9:30 AM EST Office Visit [facility] MED[facility]INE [address] [place] [phone] Anayeli Naranjo ANP [address] [place] [phone] documented as of this encounter Visit Diagnoses Diagnosis Low testosterone documented in this encounter Additional Health Concerns Assessment Noted Time PHQ-9 Depression Total Score: 0 05/15/20 23 10:47 AM EDT documented as of this encounter Care Teams Brand Leader Relationship Specialty Start Date End Date Anayeli Naranjo ANP [address] [place] [phone] PCP - General Family Medicine 06/09/21 documented as of this encounter
--- OUTSIDE RECORDS SUMMARY | 2025-10-08 09:17 | XMS_ITS | Encounter Summary ---
Author Organization [employer] Address [address] [address] Care Team Providers Care Radio Director Name Role Phone Anayeli Naranjo Primary Care Provider Reason for Visit * Reason Comments Med Refill Encounter Details Date Type Department Care Team ([facility] st Contact Info) Description 12/06/2023 Refill [facility] MED[facility]INE 230 [place], [place] [phone] Anayeli Naranjo ANP 230 [place] [address] Low testosterone Social History Tobacco Use Types [...] Office Visit [facility] MED[facility]INE [address] [place] [phone] Anayeli Naranjo ANP [address] [place] [address] documented as of this encounter Visit Diagnoses Diagnosis Low testosterone documented in this encounter Additional Health Concerns Assessment Noted Time PHQ-9 Depression Total Score: 0 05/15/20 23 10:47 AM EDT documented as of this encounter Care Teams Radio Director Relationship Specialty Start Date End Date Anayeli Naranjo ANP [address] [place] [phone] PCP - General Family Medicine 06/09/21 documented as of this encounter
--- OUTSIDE RECORDS SUMMARY | 2025-10-08 09:17 | XMS_ITS | Encounter Summary ---
Author Organization [employer] Address [address] [address] Care Team Providers Care Teaching Supervisor Name Role Phone Anayeli Naranjo Primary Care Provider [phone] Reason for Visit * Reason Comments Med Refill Encounter Details Date Type Department Care Team ([facility] st Contact Info) Description 02/20/2024 Refill [facility] MED[facility]INE 230 [place], [place] [phone] Anayeli Naranjo ANP 230 [place] [address] Social History Tobacco Use Types Packs/Day Years [...] Office Visit [facility] MEDICINE [address] [place] [phone] Anayeli Naranjo ANP [address] [place] [address] documented as of this encounter Visit Diagnoses Not on filedocumented in this encounter Additional Health Concerns Assessment Noted Time PHQ-9 Depression Total Score: 0 05/15/20 23 10:47 AM EDT documented as of this encounter Care Teams Teaching Supervisor Relationship Specialty Start Date End Date Anayeli Naranjo ANP [address] [place] [phone] PCP - General Family Medicine 06/09/21 documented as of this encounter
--- OUTSIDE RECORDS SUMMARY | 2025-10-08 09:17 | XMS_ITS | Clinical Summary ---
Author Organization [employer] Address [address] [place] [address] Care Team Providers Care Coding Clerks Supervisor Name Role Phone Anayeli Naranjo ARGENIS Primary Care Provider [phone] Allergies Active Allergy Reactions Criticality Noted Date Comments Penicillins 07/17/2022 Medications Blood Glucose Monitoring Suppl (Grability[employer] Tower Lite) w/Device kit TEST BLOOD SUGAR ONE [...] TWO TIMES DAILY 100 each 023 Active Ozempic, 1 MG/DOSE, 4 MG/3ML solution pen-injectorIndic ations:Type 2 diabetes mellitus with hyperglycemia, without long-term current use of insulin (HCC) INJECT 1 MG UNDER THE SKIN 1 (ONE) TIME PER WEEK. 3 mL 12 025 Active Syringe 18G X 1-2 3 ML miscIndications:L ow testosterone Use to [...] week INTO THIGH OR BUTTOCK 4 mL Active atorvastatin (Lipitor) 10 MG tabletIndications :Type 2 diabetes mellitus with hyperlipidemia (HCC) Take 1 tablet (10 mg) by mouth Once per day. 90 tablet 3 025 2025 Active Jardiance 25 MGIndications:Typ e 2 diabetes mellitus with hyperglycemia, without long-term current use of insulin (HCC) TAKE 1 TABLET BY MOUTH EVERY DAY IN THE MORNING 90 tablet 1 025 Active Jardiance 25 MGIndications:Typ e 2 diabetes mellitus with hyperglycemia, without long-term current use of insulin ([facility]) TAKE 1 TABLET BY MOUTH EVERY DAY IN THE MORNING 90 tablet 1 025 2024 Discontinued Active Problems Problem Noted Date Diagnosed Date Screening for colon cancer 03/04/2024 Overview (03/04/2024): Cologuard negative 02/2023 Ankylosing spondylitis of multiple sites in spin e ([facility]/HCC) 06/11/2023 Overview (06/11/2023): Pos HLA B27 Ag on 06/09/27 Sees [facility] Rheumatology Low testosterone 05/15/2023 Overview (06/10/2024): H/H [...] Encounters Date Type Department Care Team Description 09/09/2025 Refill [facility] MEDICINE [address] [place] [address] Anayeli Naranjo ANP Type 2 diabetes mellitus with hyperglycemia, without long-term current use of insulin (HCC) 08/31/2025 Orders Only [facility] MEDICINE [address] [place] [address] Anayeli Naranjo ANP 08/31/2025 Results Follow-Up [facility] [address] [place] [address] Anayeli Naranjo ANP Lipid Panel, Standard, Hemoglobin A1c, Hemoglobin and Hematocrit, Additional followed-up results: 3 08/24/2025 Telephone [facility] MEDICINE [address] [place] [address] Anayeli Naranjo ANP October08/21/2025 10:00 AM EDT Office Visit [facility] OPTOMETRY [address] [place] [address] Yosef, Elizabeth, OD Diabetes type 2, no ocular involvement (HCC) (Primary Dx); History of uveitis; 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; Nuclear sclerotic cataract of both eyes; Presbyopia 08/21/2025 Travel 08/20/2025 11:30 AM EDT Office Visit [facility] MEDICINE [address] [place] [address] Anayeli Naranjo ANP Type 2 diabetes mellitus with hyperglycemia, without long-term current use of insulin ([facility]) (Primary Dx); Ankylosing spondylitis of multiple sites in spine ([facility]) ([facility]); Low testosterone; History of uveitis; Type 2 diabetes mellitus with hyperlipidemia ([facility]) 08/20/2025 Travel 08/18/2025 Telephone [facility] MEDICINE [address] [place] [phone] Anayeli Naranjo ANP chart prep 08/12/2025 Patient Outreach [address] [address] Anayeli Naranjo ANP Pre-visit Planning (Pre-visit planning - LVM ) 07/22/[address] [address] Joselyn Villagomez, plant scientist Orders; Appointment Request 07/21/2025 Orders Only [address] [address] Anayeli Naranjo ANP Low testosterone (Primary Dx); Type 2 diabetes mellitus with hyperlipidemia ([facility]) ([facility]) 07/20/2025 Refill [facility] MEDICINE [address] [place] [phone] Anayeli Naranjo ANP Low testosterone 07/17/[address] [address] Anayeli Naranjo ANP Type 2 diabetes mellitus with hyperglycemia, without long-term current use of insulin ([facility]) from Last 3 Months Immunizations Immunization Administration Dates Next Due Influenza injectable quadrivalent preservative f ree 07/18/2021 Influenza, seasonal, injectable, preservative fr ee 11/06/2024 Pfizer Covid-19 Vaccine 12+ 01/31/2022, Pfizer Covid-19 Vaccine 12+ lindsay-sucrose (Cool C ap) 01/31/2022,01/10/2022 Pneumococcal Conjugate PCV 20 03/04/2024 [...] 9:30 AM EST Office Visit [facility] MEDICINE [address] [place], [place] [phone] Anayeli Naranjo ANP [address] [place] [address] Health Maintenance Due Date Last Done Comments CT Colonography 1968 Colonoscopy 1968 FIT 1968 Sigmoidoscopy 1968 Hepatitis B Vaccines (1 of 3 - 19+ 3-dose series) 1987 Zoster Vaccines (1 of 2) 2018 FOBT 03/06/2024 03/06/2023 COVID-19 Vaccine ( season) 2025 01/31/2022, 01/31/2022, 01/10/2022, Additional history exists Influenza Vaccine (#1) 2025 11/06/2024, 2020 Alcohol/Substance Use Screening 11/06/2025 11/06/2024 Diabetes: Foot Exam 11/06/2025 11/06/2024, Diabetes: Hemoglobin A1C 02/25/2026 025, 08/20/2025, 11/13/2024, Additional history exists Colorectal Cancer Screening 03/06/2026 FIT DNA/Cologuard 03/06/2026 03/06/2023 Depression Screening 08/20/2026 08/20/2025, 08/20/20 25 Disability Screening 08/20/2026 08/20/2025 SDOH Screening 08/20/2026 08/20/2025 Diabetes: Urine Protein Screening 08/28/2026 08/28/2025, 06/05/2024, 02/13/2023 Lipid Panel 08/28/2026 08/28/2025, 10/23, 06/05/2024, Additional history exists Tobacco Screening 09/07/2026 09/07/2025 Eye Exam 08/21/2027 08/21/2025, 07/24, 08/21/2025, Additional [...] on patient's age to complete this topic Goals Goal Patient Goal Type Associated Problems Recent Progress Patient-Stated? Author Help patients manage their type 2 diabetes Care Plan Help patients manage their type 2 diabetes No Elizabeth Navas, OD Patient has chronic kidney disease Care Plan Patient has chronic kidney disease No Elizabeth Navas, OD Patient has chronic kidney disease Care Plan Patient has chronic kidney disease No Anayeli Naranjo ANP Patient has chronic kidney disease Care Plan Patient has chronic kidney disease No Brianna Lisa Procedures Procedure Name Priority Date/Time Associated Diagnosis Comments COMPREHENSIVE METABOLIC PANEL Routine 08/28/2025 8:51 AM EST Low testosterone HEMOGLOBIN + HEMATOCRIT Routine 08/28/2025 8:51 AM EST Low testosterone TESTOSTERONE, FREE, BIOAVAILABLE AND TOTAL, MALES (ADULT), [place] Routine 08/28/2025 8:51 AM EST Low testosterone HEMOGLOBIN A1C Routine 08/28/2025 8:51 AM EST Type 2 diabetes mellitus with hyperlipidemia (HCC) LIPID PANEL, STANDARD Routine 08/28/2025 8:51 AM EST Type 2 diabetes mellitus with hyperlipidemia (HCC) ALBUMIN, RANDOM URINE W/CREATININE Routine 08/28/2025 8:43 AM EST Type 2 diabetes mellitus with hyperlipidemia (HCC) POCT GLYCATED HEMOGLOBIN, TOTAL Routine 08/20/2025 12:03 PM EDT Type 2 diabetes mellitus with hyperglycemia, without long-term current use of insulin (HCC) POCT GLUCOSE Routine 08/20/2025 12:00 PM EDT Type 2 diabetes mellitus with hyperglycemia, without long-term current use of insulin (HCC) HEPATITIS PANEL, GENERAL Routine 06/05/2023 2:14 PM EDT HM FIT DNA/COLOGUARD CANCER SCREENING Routine 03/06/2023 ZZZ HISTORICAL HIV AB/AG Routine 10/31/2019 3:33 PM EST from Last 3 Months or Most Recently Relevant to Health Maintenance Results * (ABNORMAL) Hemoglobin and Hematocrit (08/28/2025 8:51 AM EST) Hemoglobin 17.9 14.0 - 18.0 g/dl [facility] Hematocrit 55.7(H) 42.0 - 52.0 % [facility] Comment:Note: Hematocrits gr eater than 55% may interfere withcoagulation testing. Blood Venous blood specimen / Unknown 08/28/2025 8:51 AM EST 08/28/2025 11:17 AM EST us [facility] LAB BLOOD ORDERABLES Final Resul t [facility] [address] [place] [phone] * (ABNORMAL) Testosterone, Free (Dialysis) And Total, MS (08/28/2025 8:51 AM EST) Testosterone, Total 801 250 - 1100 ng/dL [facility] Comment:For additional infor tamela, please refer [email or web address](This link is being provided for informational/educational purposes only.)This test was developed and its analytical performancecharacteristics have been determined by [place]. It hasnot been cleared or approved by the U.S. Food and DrugAdministration. This assay has been validated pursuantto the CLIA regulations and is used for clinicalpurposes. Testosterone, Free 187.4(A ) 35.0 - 155.0 pg/mL [facility] Comment:This test was develo ped and its analytical performancecharacteristics have been determined by [employer] [place], [place]. It hasnot been cleared or approved by the U.S. Food and DrugAdministration. This assay has been validated pursuantto the CLIA regulations and is used for clinicalpurposes.THIS TEST WAS PERFORMED AT:[employer]/[id number] [place] [address]PFVYDRRSADIQ AVENDANO MD,PHD Blood Venous blood specimen / Unknown 08/28/2025 8:51 AM EST 08/28/2025 11:17 AM EST Formerly [facility] LAB BLOOD ORDERABLES Final Resul t [facility] [address] [place] [phone] * (ABNORMAL) Hemoglobin A1c (08/28/2025 8:51 AM EST) Hemoglobin A1c 6.7(H) <6.0 % [facility] Comment:Hemoglobin A1C Refer ence Range Adults: 4.8 - 6.0 % Non diabetic: < 6.0 % Goal: < 7.0 %Additional Action Suggested: > 8.0 %Note: Hemoglobin A1c results are invalid for patients with abnormal amounts of HbF. Blood transfusions may impact the HbA1c concentration in the patient sample. Estimated Average Glucose 146 mg/dL [facility] Comment:eAG = Estimated ave rage glucose which is %A1C expressed asaverage glucose, using the formula of the [id number] Glucose study (ADAG), Diabetes Care, Vol.31,#8,May. 2007 Blood Venous blood specimen / Unknown 08/28/2025 8:51 AM EST 08/28/2025 11:17 AM EST Anayeli Naranjo ANP LAB BLOOD ORDERABLES Final Resul t Performing Organization Address [facility] de Phone Number [facility] [address] [place] [address] [phone] * (ABNORMAL) Lipid Panel, Standard (08/28/2025 8:51 AM EST) Triglycerides 120 <150 mg/dL [facility] Comment:Desirable Triglyceri de: less than 150 mg/dLBorderline High Triglyceride 150-199 mg/dLHigh Triglyceride: 200-499 mg/dLVery High Triglyceride: greater than or equal to 5OO mg/dL Cholesterol 207(H) <200 mg/dL [facility] Comment:Desirable Cholestero l: less than 200 mg/dLBorderline High Cholesterol: 200-239 mg/dLHigh Cholesterol: greater than 239 mg/dL LDL Cholesterol Calculated 140(H) <100 mg/dL [facility] Comment:Desirable LDL: less than 100 mg/dLNear Optimal/Above Optimal LDL: 110- 129 mg/dLBorderline High LDL: 130-159 mg/dLHigh LDL: 160-189 mg/dLVery High LDL: greater than or equal to 190 mg/dL HDL Cholesterol 43 >40 mg/dL [facility] Comment:Desirable HDL: great er than 40 mg/dL Note: This HDL assay may give artificially low results in patients with liver disease. Blood Venous blood specimen / Unknown 08/28/2025 8:51 AM EST 08/28/2025 11:17 AM EST us Anayeli Naranjo ANP LAB BLOOD ORDERABLES Final Resul t Performing Organization Address City/[facility]/ZIP Co de Phone Number [facility] [address] [place] [address] [phone] * (ABNORMAL) Comprehensive Metabolic Panel (08/28/2025 8:51 AM EST) Sodium 137 135 - 145 mmol/L [facility] Potassium 4.6 3.3 - 5.1 mmol/L [facility] Chloride 103 96 - 108 mmol/L [facility] Carbon Dioxide 28 22 - 29 mmol/L [facility] Anion Gap 11(L) 12 - 20 [facility] Urea Nitrogen (BUN) 11 9 - 16 mg/dL [facility] Creatinine, Serum 0.80 0.5 - 1.4 mg/dL [facility] Estimated Glomerular Filt Rate >60 [facility] Comment:Chronic Kidney Disea se: Estimated GFR < 60 mL/min/1.79r4Hihwiw Kidney Disease: Estimated GFR < 15 mL/min/1.73m2 Glucose 142(H) 60 - 115 mg/dL [facility] Calcium 9.4 8.4 - 10.2 mg/dL [facility] Bilirubin, Total 0.7 0.0 - 1.0 mg/dL [facility] Aspartate Amino Transferase 24 5 - 37 U/L [facility] Alanine Aminotransferase 20 0 - 40 U/L [facility] Total Protein 7.6 6.5 - 8.0 g/dL [facility] Albumin Level 4.7 3.5 - 5.0 g/dL [facility] Alkaline Phosphatase 71 39 - 117 U/L [facility] Blood Venous blood specimen / Unknown 08/28/2025 8:51 AM EST 08/28/2025 11:17 AM EST Anayeli Naranjo [facility] LAB BLOOD ORDERABLES Final Resul t [facility] [address] [place] [address] [phone] * Albumin, Random Urine W/Creatinine (08/28/2025 8:43 AM EST) Pathologist [facility] [place] Creatinine, Urine 146.86 mg/dL [facility] Microalbumin Urine 11.0 mg/L [facility] Microalbum Creatinine Ratio Ur 7.4 <30 ug/mg cr [facility] Comment:Albumin/Creatinine R atio Reference Ranges: Normal: < 30 ug/mg creatinine Microalbuminuria: 30 - 300 ug/mg creatinineClinical Albuminuria: > 300 ug/mg creatinine Urine (Urine, Random) 08/28/2025 8:43 AM EST 08/28/2025 11:24 AM EST us Anayeli Naranjo ANP LAB URINE ORDERABLES Final Resul t Performing Organization Address City/State/[facility] Co de Phone Number [facility] [address] [place] [phone] * (ABNORMAL) POCT Hgb A1c (08/20/2025 12:03 PM EDT) Pathologist [facility] [place] Hemoglobin A1C 6.5(A) 4.0 - 5.7 % QC Media Lot # [id number] Lot# Expiration Date 5,,027 Blood 08/20/2025 12:0 3 PM EDT us Anayeli Naranjo ANP POINT OF CARE TEST ENTER/EDIT OR DERABLES Final Result * POCT Glucose (08/20/2025 12:00 PM EDT) Pathologist [facility] [place] Glucose Blood, POC 125 60 - 200 mg/dL QC Media Lot # [id number] Lot# Expiration Date 3,,026 Blood Capillary blood specimen / Unknown 08/20/2025 12:00 PM EDT us Anayeli Naranjo ANP POINT OF CARE TEST ENTER/EDIT OR DERABLES Final Result * Hepatitis Panel, General (06/05/2023 2:14 PM EDT) Pathologist [facility] [place] Hepatitis A IgM Nonreactive Nonreactive [facility] Comment:IgM antibodies to MENA V not detected; does not exclude earlyacute or recovered HAV infection. ~Hepatitis B Surface Antibody NONREACTIVE Nonreactive [facility] Comment:Nonreactive: < 8.00 mIU/mL Hepatitis B Core Antibody Nonreactive Nonreactive [facility] Hepatitis C Antibody Nonreactive Nonreactive [facility] Comment:Antibodies to HCV no t detected; does not exclude early acuteHCV infection. Hepatitis B Surface Ag Negative Negative [facility] 06/05/2023 2:14 PM EDT 06/05/2023 2:14 PM EDT [facility] External Provider LAB BLO OD ORDERABLES Final Result [facility] [address] [place] [phone] * FIT DNA/Cologuard Cancer Screening (03/06/2023) Pathologist [facility] [place] Cologuard Cancer Screen Negative Stool Brianna Pugh - 03/06/2023 Results in media marketing manager [facility] Provider HEALTH MAINTENANCE Final Result * HIV AB/AG (10/31/2019 3:33 PM EST) Pathologist [facility] [place] HIV AG/AB NONREACTIVE NR [facility] ON LAB [...] of detection of this assay. The Antonio Block Breaker Operator HIV Ag/Ab Combo assay result and supplemental assay results should be interpreted in conjunction with the patient's clinical presentation, history and other laboratory results. If the results are inconsistent with clinical evidence, additional testing is suggested to confirm the result. 10/31/2019 3:33 PM EST us Historical Provider HISTORICAL/NON ORDERABLE LABS Final Result [facility] [address] from Last 3 Months or Most Recently Relevant to Health Maintenance Additional Health Concerns Active Problems Noted Date Diagnosed Date Help patients manage their type 2 diabetes 09/07 Patient has chronic kidney disease 09/07/2025 Patient has chronic kidney disease 09/10/2025 Patient has chronic kidney disease 09/29/2025 Insurance [employer] Care Teams Coding Clerks Supervisor Relationship Specialty Start Date End Date Anayeli Naranjo ANP [address] [place] [phone] PCP - General Family Medicine 06/09/21
[2025-10-08 11:26] LABS: Hematocrit 52.4 % (42.0-52.0); Hemoglobin 17.0 g/dl (14.0-18.0)
[2025-10-08 12:11] LABS: Ferritin 39 ng/mL (20-250); Iron 63 mcg/dL (45-160); Percent Iron Saturation 23 % (15-50); Total Iron Binding Capacity 273 mcg/dL (228-428); Unsaturated Iron Binding 210 ug/dL
== END 2025-10-08 08:45 ==
LOC: HO.HHCL 08:44
PROVIDERS: PCP Nurse Practitioner Primary Care; Visit Provider Nurse Practitioner Primary Care
DX: R71.8 Other abnormality of red blood cells (principal)
CPT/HCPCS: 36415; 82728; 83540; 85014; 85018